=== PATIENT | male | born 1985 | race Hispanic/Latino ===

== ENCOUNTER 2016-12-30 16:25 | Emergency (ER) | payer BC ==
[2016-12-30 16:40] VITALS: BP 91/51; PULSE 97; RESP 17; TEMP 98; O2SAT 98
--- NOTE | 2016-12-30 17:23 | CT ---
PROCEDURE: CT HEAD WITHOUT CONTRAST. HISTORY: Head injury COMPARISON: None available. TECHNIQUE: Axial computed tomography images were obtained through the head/brain without intravenous contrast. Radiation dose: Total exam DLP = 839.67 mGy-cm. This CT exam was performed using one or more of the following dose reduction techniques: Automated exposure control, adjustment of the mA and/or kV according to patient size, and/or use of iterative reconstruction technique. FINDINGS: HEMORRHAGE: No intracranial hemorrhage. BRAIN: No mass effect or edema. No atrophy or chronic microvascular ischemic changes.Please note that MRI with diffusion imaging is more sensitive in the detection of acute ischemic event. VENTRICLES: No hydrocephalus. CALVARIUM: Unremarkable. PARANASAL SINUSES: Unremarkable as visualized. No significant inflammatory changes. MASTOID AIR CELLS: Unremarkable as visualized. No inflammatory changes. OTHER FINDINGS: None. IMPRESSION: No acute intracranial pathology identified.
--- NOTE | 2016-12-30 17:25 | ED PDOC ---
HPI: Head Injury Time Seen by Provider: 12/30/16 16:44 Chief Complaint (Nursing): Headache Chief Complaint (Provider): Head injury History Per: Patient History/Exam Limitations: no limitations Injury Occurred (Timing): Hours Ago: (1x) Onset/Duration Of Symptoms: Hrs (1x) Patient States: Fell Striking Head Severity: Moderate Loss Of Consciousness: No Additional Complaint(s): 31 year old male with no pertinent medical history presents to the ED with complaints of a head injury that occurred 1x hours prior to arrival. He reports that he was standing on a tool fixing something, and fell backward hitting the top of his head on a metal frame. His head is bleeding and he reports feeling "fuzzy". He denies having any loss of consciousness, nausea, and vomiting. Tetanus vaccination is up to date. PMD: Not provided Past Medical History Reviewed: Historical Data, Nursing Documentation, Vital Signs Vital Signs: Last Vital Signs Temp 98 F 12/30/16 16:37 Pulse 97 H 12/30/16 16:37 Resp 17 12/30/16 16:37 BP 91/51 L 12/30/16 16:37 Pulse Ox 98 12/30/16 16:37 - Medical History PMH: No Chronic Diseases - Surgical History Surgical History: No Surg Hx - Family History Family History: States: No Known Family Hx - Social History Current smoker - smoking cessation education provided: No Alcohol: None Drugs: Denies - Immunization History Hx Tetanus Toxoid Vaccination: Yes - Allergies Allergies/Adverse Reactions: Allergies Allergy/AdvReac Type Severity Reaction Status Date / Time No Known Allergies Allergy Verified 12/30/16 16:37 Review of Systems ROS Statement: Except As Marked, All Systems Reviewed And Found Negative Constitutional: Negative for: Fever Gastrointestinal: Negative for: Nausea, Vomiting Neurological: Positive for: Other (patient feels "fuzzy". Top of head is bleeding due to injury). Negative for: Headache Physical Exam - Reviewed Nursing Documentation Reviewed: Yes Vital Signs Reviewed: Yes - Physical Exam Appears: Positive for: Well, Non-toxic, No Acute Distress Head Exam: Positive for: NORMOCEPHALIC. Negative for: ATRAUMATIC (.5 cm laceration on top of head) Skin: Positive for: Normal Color, Warm, Dry Eye Exam: Positive for: Normal appearance, EOMI, PERRL Neck: Positive for: Normal, Painless ROM, Supple Cardiovascular/Chest: Positive for: Regular Rate, Rhythm Respiratory: Positive for: Normal Breath Sounds. Negative for: Respiratory Distress Neurologic/Psych: Positive for: Alert, Oriented (3x) - ECG O2 Sat by Pulse Oximetry: 98 (RA) Pulse Ox Interpretation: Normal Medical Decision Making Medical Decision Makin:44 Initial impression: 31 year old male with a head injury and scalp laceration. Initial plan: * CT head w/o contrast * reevaluation 1 staple is placed on top of patient's head. Scribe Attestation: Documented by Mahi Villafuerte, acting as a scribe for Saskia Rodríguez MD. Provider Scribe Attestation: All medical record entries made by the Scribe were at my direction and personally dictated by me. I have reviewed the chart and agree that the record accurately reflects my personal performance of the history, physical exam, medical decision making, and the department course for this patient. I have also personally directed, reviewed, and agree with the discharge instructions and disposition. Procedures - Time-Out Type of Procedure: laceration repair Site of Procedure: scalp Correct Patient (with visual ID + MR# on ID Band): Yes Correct Procedure: Yes Correct Site Marked: Yes Physician Name: Saskia Rodríguez MD - Laceration/Wound Repair Anterior Head Wound Length (cm): 0.5 Wound Explored: clean Betadine Prep?: Yes Wound Repaired With: [place] (1 staple used) Wound Complexity: Simple
== END 2016-12-30 18:34 | disposition home or self-care (01) ==
LOC: H.ER 16:25
DX: S01.01XA Laceration without foreign body of scalp, initial encounter (principal); W22.8XXA Striking against or struck by other objects, initial encounter; Y92.89 Other specified places as the place of occurrence of the external cause